=== PATIENT | female | born 1990 | race Caucasian/White ===

== ENCOUNTER 2024-05-08 13:58 | Emergency (ER) | payer MEDICAID ==
[~2024-05-08] VITALS: Ht 180.3 cm; Wt 136.0 kg
[2024-05-08 14:01] VITALS: BP 126/81; PULSE 76; RESP 16; TEMP 97.7; O2SAT 98
[2024-05-08] MEDS ORDERED: PENI500T2 PO (14:46)
[2024-05-08] MEDS ORDERED: IBUP-1984 PO (14:46)
== END 2024-05-08 14:54 | disposition home or self-care (01) ==
LOC: ER 13:59
DX: K02.9 Dental caries, unspecified (principal); Z88.1 Allergy status to other antibiotic agents; Z88.5 Allergy status to narcotic agent; Z88.8 Allergy status to other drugs, medicaments and biological substances
CPT/HCPCS: 99283

== ENCOUNTER 2024-05-23 13:39 | Emergency (ER) | payer MEDICAID ==
[~2024-05-23] VITALS: Ht 180.3 cm; Wt 135.5 kg
[2024-05-23 13:56] VITALS: BP 142/97; PULSE 86; RESP 18; TEMP 97.9; O2SAT 97
[2024-05-23] MEDS ORDERED: AMOX-580 PO (15:13)
== END 2024-05-23 15:36 | disposition home or self-care (01) ==
LOC: ER 13:40
DX: S00.83XA Contusion of other part of head, initial encounter (principal); K04.7 Periapical abscess without sinus; Z88.1 Allergy status to other antibiotic agents; Z88.5 Allergy status to narcotic agent; Z88.8 Allergy status to other drugs, medicaments and biological substances; X58.XXXA Exposure to other specified factors, initial encounter; Y93.89 Activity, other specified; Y92.89 Other specified places as the place of occurrence of the external cause; Y99.8 Other external cause status
CPT/HCPCS: 70110; 99283